=== PATIENT | male | born 1975 | race Caucasian/White ===

== ENCOUNTER 2022-06-13 11:27 | Inpatient (IN) | payer BC ==
[~2022-06-13] VITALS: Ht 170.2 cm; Wt 191.0 kg
[2022-06-13] VITALS (7 sets, daily range): BP systolic 114–159; BP diastolic 61–82
[2022-06-13] MEDS ORDERED: POLYETHYLENE GLYCOL 3350 17 GM PACK PO PRN (14:45)
[2022-06-13] MEDS ORDERED: SODIUM CHLORIDE 0.9% 250ML 250 ML IV NR (15:00)
[2022-06-13] MEDS ORDERED: FUROSEMIDE INJ 10 MG/ML 2 ML VIAL IV PRN (15:00)
[2022-06-13] MEDS ORDERED: FAMOTIDINE 20 MG TAB PO SCH (16:30)
[2022-06-13 17:58] LABS: BASOPHILS % 0.2 % (0.0-1.0); EOSINOPHILS % 0.2 % (0.0-6.0); HEMATOCRIT 22.3 % (38.2-49.6); LYMPHOCYTES # (AUTO) 0.7 (1.0-3.2); LYMPHOCYTES % 6.3 % (18.0-39.1); MEAN CORPUSCULAR HEMOGLOBIN 18.9 pg (28-32); MEAN CORPUSCULAR HGB CONC 25.1 g/dL (31-35); MEAN CORPUSCULAR VOLUME 75.1 fL (81-99); MONOCYTES # (AUTO) 0.2 (0.2-0.8); NEUTROPHILS # (AUTO) 9.5 (2.1-6.9); NEUTROPHILS % 90.7 % (38.7-80.0); PLATELET COUNT 331 x10e3/uL (140-360); RED BLOOD COUNT 2.97 x10e6/uL (4.3-5.7); RED CELL DISTRIBUTION WIDTH 19.2 % (11.7-14.4)
[2022-06-13] MEDS: DOCUSATE SODIUM 100 MG CAP PO SCH (18:00)
[2022-06-13] MEDS: RIVAROXABAN 10 MG TABLET PO SCH (18:02)
[2022-06-13 18:03] LABS: HEMOGLOBIN 5.6 g/dL (14.0-18.0)
[2022-06-13] MEDS ORDERED: SODIUM CHLORIDE 0.9% 250ML 250 ML ONE (18:45)
[2022-06-13] MEDS ORDERED: TEMAZEPAM 7.5 MG CAP PO PRN (21:00)
[2022-06-14] VITALS (15 sets, daily range): BP systolic 129–160; BP diastolic 62–98
[2022-06-14 05:13] LABS: BASOPHILS % 0.2 % (0.0-1.0); HEMATOCRIT 22.9 % (38.2-49.6); HEMOGLOBIN 6.4 g/dL (14.0-18.0); LYMPHOCYTES # (AUTO) 1.3 (1.0-3.2); LYMPHOCYTES % 10.3 % (18.0-39.1); MEAN CORPUSCULAR HEMOGLOBIN 20.4 pg (28-32); MEAN CORPUSCULAR HGB CONC 27.9 g/dL (31-35); MEAN CORPUSCULAR VOLUME 72.9 fL (81-99); MONOCYTES # (AUTO) 0.6 (0.2-0.8); MONOCYTES % 4.5 % (4.4-11.3); NEUTROPHILS # (AUTO) 10.5 (2.1-6.9); NEUTROPHILS % 83.9 % (38.7-80.0); PLATELET COUNT 347 x10e3/uL (140-360); RED BLOOD COUNT 3.14 x10e6/uL (4.3-5.7); RED CELL DISTRIBUTION WIDTH 20.4 % (11.7-14.4)
[2022-06-14 05:33] LABS: ALBUMIN 2.3 g/dL (3.5-5.0); ALBUMIN/GLOBULIN RATIO 0.5 (0.8-2.0); ANION GAP 15.6 mmol/L (8-16); CALCIUM 8.6 mg/dL (8.4-10.2); CHOL/HDL RATIO 5.3 (3.9-4.7); CREATININE, SERUM 0.73 mg/dL (0.72-1.25); PHOSPHORUS 3.1 MG/DL (2.3-4.7); POTASSIUM 4.6 mmol/L (3.5-5.1)
[2022-06-14 05:53] LABS: THYROID STIMULATING HORMONE 0.461 uIU/mL (0.350-4.940)
[2022-06-14] MEDS ORDERED: SODIUM CHLORIDE 0.9% 250ML 250 ML IV ONE (06:45)
[2022-06-14 08:38] LABS: PLATELET ESTIMATE ADEQUATE; PLATELET MORPHOLOGY COMMENT NORMAL; RBC MORPHOLOGY COMMENT NORMAL
[2022-06-14] MEDS ORDERED: AZITHROMYCIN 250 MG TAB PO SCH (09:00)
[2022-06-14] MEDS: DOCUSATE SODIUM 100 MG CAP PO SCH ×2 (10:31→18:59)
[2022-06-14] MEDS ORDERED: SODIUM CHLORIDE 0.9% 250ML 250 ML ONE (12:38)
[2022-06-14 13:12] LABS: FERRITIN 76.68 ng/mL (21.81-274.66)
[2022-06-14] MEDS: RIVAROXABAN 10 MG TABLET PO SCH (18:58)
[2022-06-14] MEDS: HYDRALAZINE HCL 20 MG/ML VIAL IV PRN (19:42)
[2022-06-14 20:52] LABS: HEMATOCRIT 28.3 % (38.2-49.6); HEMOGLOBIN 7.8 g/dL (14.0-18.0); MEAN CORPUSCULAR HEMOGLOBIN 21.4 pg (28-32); MEAN CORPUSCULAR HGB CONC 27.6 g/dL (31-35); MEAN CORPUSCULAR VOLUME 77.7 fL (81-99); PLATELET COUNT 367 x10e3/uL (140-360); RED BLOOD COUNT 3.64 x10e6/uL (4.3-5.7); RED CELL DISTRIBUTION WIDTH 20.6 % (11.7-14.4)
[2022-06-14 21:54] LABS: LYMPHOCYTES % (MANUAL) 11 % (19-48); MONOCYTES % (MANUAL) 7 % (3.4-9.0); NEUTROPHILS % (MANUAL) 82 % (40-74)
[2022-06-14 22:04] LABS: ANISOCYTOSIS MODERATE; ELLIPTOCYTE, RBC SLIGHT; HYPOCHROMASIA SLIGHT; PLATELET ESTIMATE ADEQUATE; PLATELET MORPHOLOGY COMMENT NORMAL; RBC MORPHOLOGY COMMENT ABNORMAL
[2022-06-15] VITALS (11 sets, daily range): BP systolic 131–164; BP diastolic 62–96
[2022-06-15 04:47] LABS: BASOPHILS % 0.2 % (0.0-1.0); EOSINOPHILS # (AUTO) 0.1 (0.0-0.4); EOSINOPHILS % 0.9 % (0.0-6.0); LYMPHOCYTES # (AUTO) 1.8 (1.0-3.2); LYMPHOCYTES % 14.5 % (18.0-39.1); MEAN CORPUSCULAR HEMOGLOBIN 21.4 pg (28-32); MEAN CORPUSCULAR HGB CONC 27.6 g/dL (31-35); MEAN CORPUSCULAR VOLUME 77.7 fL (81-99); MONOCYTES # (AUTO) 0.9 (0.2-0.8); NEUTROPHILS # (AUTO) 9.7 (2.1-6.9); NEUTROPHILS % 76.4 % (38.7-80.0); PLATELET COUNT 353 x10e3/uL (140-360); RED BLOOD COUNT 3.73 x10e6/uL (4.3-5.7); RED CELL DISTRIBUTION WIDTH 21.1 % (11.7-14.4)
[2022-06-15 05:06] LABS: POTASSIUM 4.5 mmol/L (3.5-5.1)
[2022-06-15 05:07] LABS: ALBUMIN 2.3 g/dL (3.5-5.0); ALBUMIN/GLOBULIN RATIO 0.5 (0.8-2.0); ANION GAP 16.5 mmol/L (8-16); CALCIUM 8.9 mg/dL (8.4-10.2); CREATININE, SERUM 0.82 mg/dL (0.72-1.25)
[2022-06-15] MEDS: HYDRALAZINE HCL 20 MG/ML VIAL IV PRN ×2 (06:13→22:43)
[2022-06-15] MEDS ORDERED: TEMAZEPAM 15 MG CAP PO PRN (09:15)
[2022-06-15] MEDS: DOCUSATE SODIUM 100 MG CAP PO SCH ×2 (10:30→17:27)
[2022-06-15] MEDS: FOLIC ACID/CYANOCOB/PYRIDOXINE TAB PO SCH (10:30)
[2022-06-15] MEDS: HEPARIN 25,000 UNIT 1,500 UNIT in DEXTROSE 5% 250ML 250 ML IV SCH ×2 (13:30→21:29)
[2022-06-15] MEDS ORDERED: HEPARIN SOD (PORCINE) 5,000 UNIT/ML VIAL IV ONE (13:30)
[2022-06-15] MEDS ORDERED: SODIUM FERRIC GLUCONATE COMPLX 125 MG in SODIUM CHLORIDE 0.9% 100 ML IV SCH (14:00)
[2022-06-15] MEDS: IRON SUCROSE 100 MG in SODIUM CHLORIDE 0.9% 100 ML IV SCH (16:37)
[2022-06-15] MEDS: ACETAMINOPHEN 325 MG TAB PO PRN (21:18)
[2022-06-16] VITALS (15 sets, daily range): BP systolic 137–178; BP diastolic 68–93
[2022-06-16] MEDS: HYDRALAZINE HCL 20 MG/ML VIAL IV PRN ×2 (03:15→08:38)
[2022-06-16] MEDS: HEPARIN 25,000 UNIT 1,500 UNIT in DEXTROSE 5% 250ML 250 ML IV SCH ×2 (04:37→11:58)
[2022-06-16] MEDS: FOLIC ACID/CYANOCOB/PYRIDOXINE TAB PO SCH (08:37)
[2022-06-16] MEDS: DOCUSATE SODIUM 100 MG CAP PO SCH ×2 (08:37→16:40)
[2022-06-16] MEDS: IRON SUCROSE 100 MG in SODIUM CHLORIDE 0.9% 100 ML IV SCH (09:56)
[2022-06-16] MEDS: NYSTATIN 15 GM POWDER UD BTL TOP SCH (09:56)
[2022-06-16 09:58] LABS: BASOPHILS % 0.4 % (0.0-1.0); EOSINOPHILS # (AUTO) 0.3 (0.0-0.4); EOSINOPHILS % 2.4 % (0.0-6.0); HEMATOCRIT 29.7 % (38.2-49.6); LYMPHOCYTES # (AUTO) 1.9 (1.0-3.2); LYMPHOCYTES % 18.7 % (18.0-39.1); MEAN CORPUSCULAR HEMOGLOBIN 21.4 pg (28-32); MEAN CORPUSCULAR HGB CONC 26.9 g/dL (31-35); MEAN CORPUSCULAR VOLUME 79.4 fL (81-99); MONOCYTES # (AUTO) 0.8 (0.2-0.8); MONOCYTES % 7.9 % (4.4-11.3); NEUTROPHILS # (AUTO) 7.2 (2.1-6.9); NEUTROPHILS % 70.1 % (38.7-80.0); PLATELET COUNT 336 x10e3/uL (140-360); RED BLOOD COUNT 3.74 x10e6/uL (4.3-5.7); RED CELL DISTRIBUTION WIDTH 22.8 % (11.7-14.4)
[2022-06-16 12:41] LABS: ANISOCYTOSIS MODERATE; HYPOCHROMASIA MODERATE; MICROCYTOSIS MODERATE; PLATELET ESTIMATE ADEQUATE; PLATELET MORPHOLOGY COMMENT NORMAL; RBC MORPHOLOGY COMMENT ABNORMAL
[2022-06-16 12:43] LABS: OVALOCYTES FEW; POLYCHROMASIA FEW
[2022-06-16] MEDS: ACETAMINOPHEN 325 MG TAB PO PRN ×2 (13:45→21:51)
[2022-06-17] VITALS (13 sets, daily range): BP systolic 91–157; BP diastolic 55–97
[2022-06-17] MEDS: HEPARIN 25,000 UNIT 1,500 UNIT in DEXTROSE 5% 250ML 250 ML IV SCH (01:49)
[2022-06-17 07:48] LABS: BASOPHILS % 0.3 % (0.0-1.0); EOSINOPHILS # (AUTO) 0.2 (0.0-0.4); EOSINOPHILS % 1.8 % (0.0-6.0); HEMATOCRIT 30.9 % (38.2-49.6); HEMOGLOBIN 8.5 g/dL (14.0-18.0); LYMPHOCYTES # (AUTO) 2.1 (1.0-3.2); LYMPHOCYTES % 16.2 % (18.0-39.1); MEAN CORPUSCULAR HEMOGLOBIN 21.7 pg (28-32); MEAN CORPUSCULAR HGB CONC 27.5 g/dL (31-35); MONOCYTES # (AUTO) 0.9 (0.2-0.8); MONOCYTES % 7.2 % (4.4-11.3); NEUTROPHILS # (AUTO) 9.4 (2.1-6.9); NEUTROPHILS % 73.9 % (38.7-80.0); PLATELET COUNT 309 x10e3/uL (140-360); RED BLOOD COUNT 3.91 x10e6/uL (4.3-5.7); RED CELL DISTRIBUTION WIDTH 23.5 % (11.7-14.4)
[2022-06-17] MEDS: NYSTATIN 15 GM POWDER UD BTL TOP SCH (08:13)
[2022-06-17] MEDS: FOLIC ACID/CYANOCOB/PYRIDOXINE TAB PO SCH (08:13)
[2022-06-17] MEDS: DOCUSATE SODIUM 100 MG CAP PO SCH ×2 (08:13→16:03)
[2022-06-17 08:34] LABS: ALBUMIN 2.4 g/dL (3.5-5.0); ALBUMIN/GLOBULIN RATIO 0.5 (0.8-2.0); ANION GAP 14.3 mmol/L (8-16); CALCIUM 8.8 mg/dL (8.4-10.2); CREATININE, SERUM 0.8 mg/dL (0.72-1.25); POTASSIUM 4.3 mmol/L (3.5-5.1)
[2022-06-17] MEDS: IRON SUCROSE 100 MG in SODIUM CHLORIDE 0.9% 100 ML IV SCH (09:25)
[2022-06-17 11:02] LABS: LYMPHOCYTES % (MANUAL) 14 % (19-48); MONOCYTES % (MANUAL) 13 % (3.4-9.0); NEUTROPHILS % (MANUAL) 73 % (40-74); NUCLEATED RED BLOOD CELLS 1; PLATELET ESTIMATE ADEQUATE; PLATELET MORPHOLOGY COMMENT NORMAL; RBC MORPHOLOGY COMMENT NORMAL
[2022-06-17] MEDS ORDERED: FENTANYL CITRATE/PF 100MCG/2 ML INJ ONE (13:08)
[2022-06-17] MEDS ORDERED: PROPOFOL IV EMULSION 10 MG/ML 20 ML VIAL ONE (13:57)
[2022-06-17] MEDS ORDERED: LIDOCAINE HCL 2% LOCAL INJ 5 ML SDV VIAL INJ ONE (13:57)
[2022-06-17] MEDS: ACETAMINOPHEN 325 MG TAB PO PRN (18:53)
[2022-06-18] MEDS: HEPARIN 25,000 UNIT 1,500 UNIT in DEXTROSE 5% 250ML 250 ML IV SCH ×2 (04:18→20:36)
[2022-06-18] MEDS ORDERED: HEPARIN 25,000 UNIT DRIP IV ONE (04:25)
[2022-06-18 04:31] LABS: BASOPHILS % 0.2 % (0.0-1.0); EOSINOPHILS # (AUTO) 0.3 (0.0-0.4); EOSINOPHILS % 2.1 % (0.0-6.0); HEMATOCRIT 28.4 % (38.2-49.6); HEMOGLOBIN 7.7 g/dL (14.0-18.0); LYMPHOCYTES # (AUTO) 2.1 (1.0-3.2); LYMPHOCYTES % 17.2 % (18.0-39.1); MEAN CORPUSCULAR HEMOGLOBIN 21.7 pg (28-32); MEAN CORPUSCULAR HGB CONC 27.1 g/dL (31-35); MONOCYTES % 8.5 % (4.4-11.3); NEUTROPHILS # (AUTO) 8.7 (2.1-6.9); NEUTROPHILS % 71.4 % (38.7-80.0); PLATELET COUNT 271 x10e3/uL (140-360); RED BLOOD COUNT 3.55 x10e6/uL (4.3-5.7); RED CELL DISTRIBUTION WIDTH 23.8 % (11.7-14.4)
[2022-06-18 04:45] LABS: ANION GAP 14.2 mmol/L (8-16); CALCIUM 8.7 mg/dL (8.4-10.2); CREATININE, SERUM 0.76 mg/dL (0.72-1.25); POTASSIUM 4.2 mmol/L (3.5-5.1)
[2022-06-18] MEDS: ACETAMINOPHEN 325 MG TAB PO PRN ×2 (06:23→18:39)
[2022-06-18] MEDS: DOCUSATE SODIUM 100 MG CAP PO SCH ×2 (08:26→16:32)
[2022-06-18] MEDS: FOLIC ACID/CYANOCOB/PYRIDOXINE TAB PO SCH (08:26)
[2022-06-18] MEDS: NYSTATIN 15 GM POWDER UD BTL TOP SCH (08:26)
[2022-06-18] MEDS: IRON SUCROSE 100 MG in SODIUM CHLORIDE 0.9% 100 ML IV SCH (08:38)
[2022-06-18 09:00] VITALS: BP 133/65
[2022-06-18 11:37] VITALS: BP 129/67
[2022-06-18] MEDS ORDERED: MIDAZOLAM HCL 2 MG/2 ML VIAL ONE (14:00)
[2022-06-18] MEDS ORDERED: SODIUM CHLORIDE 0.9% 1000ML 1,000 ML ONE (14:01)
[2022-06-18] MEDS ORDERED: FENTANYL CITRATE/PF 100MCG/2 ML INJ ONE (14:01)
[2022-06-18] MEDS ORDERED: HEPARIN SOD/SOD CHLORIDE 1,000 ML ONE (14:02)
[2022-06-18] MEDS ORDERED: LIDOCAINE HCL 2% LOCAL INJ 5 ML SDV VIAL INJ ONE (14:06)
[2022-06-18] MEDS ORDERED: IOPAMIDOL 300MG/ML 100 ML INFUS..BTL IV ONE (14:10)
[2022-06-18 15:25] VITALS: BP 134/64
[2022-06-18 19:00] VITALS: BP 137/65
[2022-06-18 20:18] VITALS: BP 137/65
[2022-06-18 23:00] VITALS: BP 142/79
[2022-06-19] MEDS: HYDROCODONE/APAP 5MG-325MG TAB PO PRN ×3 (00:17→19:19)
[2022-06-19 03:00] VITALS: BP 139/79
[2022-06-19 06:50] LABS: BASOPHILS % 0.3 % (0.0-1.0); EOSINOPHILS # (AUTO) 0.4 (0.0-0.4); EOSINOPHILS % 3.6 % (0.0-6.0); HEMATOCRIT 28.4 % (38.2-49.6); HEMOGLOBIN 7.6 g/dL (14.0-18.0); LYMPHOCYTES # (AUTO) 2.1 (1.0-3.2); LYMPHOCYTES % 17.4 % (18.0-39.1); MEAN CORPUSCULAR HEMOGLOBIN 21.7 pg (28-32); MEAN CORPUSCULAR HGB CONC 26.8 g/dL (31-35); MEAN CORPUSCULAR VOLUME 80.9 fL (81-99); MONOCYTES # (AUTO) 1.1 (0.2-0.8); MONOCYTES % 9.4 % (4.4-11.3); NEUTROPHILS # (AUTO) 8.3 (2.1-6.9); NEUTROPHILS % 68.6 % (38.7-80.0); PLATELET COUNT 255 x10e3/uL (140-360); RED BLOOD COUNT 3.51 x10e6/uL (4.3-5.7); RED CELL DISTRIBUTION WIDTH 24.1 % (11.7-14.4)
[2022-06-19 07:00] VITALS: BP 132/73
[2022-06-19] MEDS: HEPARIN 25,000 UNIT 1,500 UNIT in DEXTROSE 5% 250ML 250 ML IV SCH ×2 (07:10→17:10)
[2022-06-19] MEDS ORDERED: HEPARIN 25,000 UNIT DRIP IV ONE (07:19)
[2022-06-19 09:00] VITALS: BP 132/73
[2022-06-19] MEDS: NYSTATIN 15 GM POWDER UD BTL TOP SCH (09:00)
[2022-06-19] MEDS: DOCUSATE SODIUM 100 MG CAP PO SCH ×2 (09:00→17:08)
[2022-06-19] MEDS: IRON SUCROSE 100 MG in SODIUM CHLORIDE 0.9% 100 ML IV SCH (09:29)
[2022-06-19] MEDS: FOLIC ACID/CYANOCOB/PYRIDOXINE TAB PO SCH (11:23)
[2022-06-19 12:00] VITALS: BP 134/75
[2022-06-19 20:55] VITALS: BP 125/56
[2022-06-19 21:00] VITALS: BP 125/56
[2022-06-20] VITALS (8 sets, daily range): BP systolic 121–159; BP diastolic 55–88
[2022-06-20] MEDS ORDERED: HEPARIN 25,000 UNIT DRIP IV ONE (05:03)
[2022-06-20 08:13] LABS: BASOPHILS % 0.2 % (0.0-1.0); EOSINOPHILS # (AUTO) 0.4 (0.0-0.4); EOSINOPHILS % 3.7 % (0.0-6.0); HEMOGLOBIN 8.2 g/dL (14.0-18.0); LYMPHOCYTES # (AUTO) 1.9 (1.0-3.2); LYMPHOCYTES % 18.1 % (18.0-39.1); MEAN CORPUSCULAR HEMOGLOBIN 21.6 pg (28-32); MEAN CORPUSCULAR HGB CONC 26.5 g/dL (31-35); MEAN CORPUSCULAR VOLUME 81.6 fL (81-99); MONOCYTES # (AUTO) 0.8 (0.2-0.8); MONOCYTES % 7.8 % (4.4-11.3); NEUTROPHILS # (AUTO) 7.4 (2.1-6.9); NEUTROPHILS % 69.6 % (38.7-80.0); PLATELET COUNT 268 x10e3/uL (140-360); RED CELL DISTRIBUTION WIDTH 23.9 % (11.7-14.4)
[2022-06-20 08:33] LABS: ALBUMIN 2.5 g/dL (3.5-5.0); ALBUMIN/GLOBULIN RATIO 0.5 (0.8-2.0); ANION GAP 16.2 mmol/L (8-16); CALCIUM 9.1 mg/dL (8.4-10.2); CREATININE, SERUM 0.76 mg/dL (0.72-1.25); POTASSIUM 4.2 mmol/L (3.5-5.1)
[2022-06-20] MEDS: DOCUSATE SODIUM 100 MG CAP PO SCH ×2 (09:28→17:00)
[2022-06-20] MEDS: NYSTATIN 15 GM POWDER UD BTL TOP SCH (09:28)
[2022-06-20] MEDS: FOLIC ACID/CYANOCOB/PYRIDOXINE TAB PO SCH (09:28)
[2022-06-20] MEDS ORDERED: IOPAMIDOL 370 MG/ML 100 ML INFUS..BTL INJ ONE (11:01)
[2022-06-20] MEDS ORDERED: PEG (High)/E-LYTE SOLN 4,000 ML BTL PO ONE (14:00)
[2022-06-20] MEDS: HYDROCODONE/APAP 5MG-325MG TAB PO PRN (15:28)
[2022-06-20] MEDS: HEPARIN 25,000 UNIT 1,500 UNIT in DEXTROSE 5% 250ML 250 ML IV SCH (15:34)
[2022-06-21] VITALS (7 sets, daily range): BP systolic 135–156; BP diastolic 82–90
[2022-06-21] MEDS ORDERED: BISACODYL 5 MG TAB EC PO ONE ×4 (00:15→01:50)
[2022-06-21] MEDS: HYDROCODONE/APAP 5MG-325MG TAB PO PRN ×2 (00:49→21:55)
[2022-06-21] MEDS ORDERED: HEPARIN 25,000 UNIT DRIP IV ONE (02:42)
[2022-06-21 05:35] LABS: BASOPHILS # (AUTO) 0.1 (0.0-0.1); BASOPHILS % 0.4 % (0.0-1.0); EOSINOPHILS # (AUTO) 0.3 (0.0-0.4); EOSINOPHILS % 2.7 % (0.0-6.0); HEMATOCRIT 28.6 % (38.2-49.6); HEMOGLOBIN 8.2 g/dL (14.0-18.0); LYMPHOCYTES # (AUTO) 2.5 (1.0-3.2); LYMPHOCYTES % 19.7 % (18.0-39.1); MEAN CORPUSCULAR HEMOGLOBIN 21.8 pg (28-32); MEAN CORPUSCULAR HGB CONC 28.7 g/dL (31-35); MEAN CORPUSCULAR VOLUME 75.9 fL (81-99); MONOCYTES # (AUTO) 1.2 (0.2-0.8); MONOCYTES % 9.8 % (4.4-11.3); NEUTROPHILS # (AUTO) 8.3 (2.1-6.9); NEUTROPHILS % 66.8 % (38.7-80.0); PLATELET COUNT 279 x10e3/uL (140-360); RED BLOOD COUNT 3.77 x10e6/uL (4.3-5.7); RED CELL DISTRIBUTION WIDTH 24.4 % (11.7-14.4)
[2022-06-21 07:47] LABS: BAND NEUTROPHILS % (MANUAL) 1 %; EOSINOPHILS % (MANUAL) 3 % (0-7); LYMPHOCYTES % (MANUAL) 14 % (19-48); MONOCYTES % (MANUAL) 6 % (3.4-9.0); NEUTROPHILS % (MANUAL) 71 % (40-74); PLATELET ESTIMATE ADEQUATE; PLATELET MORPHOLOGY COMMENT NORMAL; RBC MORPHOLOGY COMMENT NORMAL
[2022-06-21 07:48] LABS: OVALOCYTES FEW
[2022-06-21 07:55] LABS: ANION GAP 15.9 mmol/L (8-16); CALCIUM 9.3 mg/dL (8.4-10.2); CREATININE, SERUM 0.76 mg/dL (0.72-1.25); POTASSIUM 3.9 mmol/L (3.5-5.1)
[2022-06-21] MEDS: NYSTATIN 15 GM POWDER UD BTL TOP SCH (09:00)
[2022-06-21] MEDS: FOLIC ACID/CYANOCOB/PYRIDOXINE TAB PO SCH (09:00)
[2022-06-21] MEDS: DOCUSATE SODIUM 100 MG CAP PO SCH ×2 (09:00→17:09)
[2022-06-21] MEDS ORDERED: PROPOFOL IV EMULSION 10 MG/ML 20 ML VIAL ONE (13:30)
[2022-06-21] MEDS ORDERED: METOCLOPRAMIDE HCL 10 MG/2ML VIAL ONE (13:30)
[2022-06-21] MEDS ORDERED: PROPOFOL IV EMULSION 50 ML IV ONE (15:21)
[2022-06-21] MEDS ORDERED: FENTANYL CITRATE/PF 100MCG/2 ML INJ ONE (16:10)
[2022-06-21] MEDS: HYDROMORPHONE 1MG/1ML INJ IV PRN (23:12)
[2022-06-22] VITALS (11 sets, daily range): BP systolic 114–150; BP diastolic 66–91
[2022-06-22] MEDS: HYDROMORPHONE 1MG/1ML INJ IV PRN ×6 (04:05→23:31)
[2022-06-22 07:01] LABS: BASOPHILS # (AUTO) 0.1 (0.0-0.1); BASOPHILS % 0.3 % (0.0-1.0); HEMATOCRIT 32.2 % (38.2-49.6); HEMOGLOBIN 9.2 g/dL (14.0-18.0); LYMPHOCYTES # (AUTO) 1.7 (1.0-3.2); LYMPHOCYTES % 8.1 % (18.0-39.1); MEAN CORPUSCULAR HEMOGLOBIN 21.9 pg (28-32); MEAN CORPUSCULAR HGB CONC 28.6 g/dL (31-35); MEAN CORPUSCULAR VOLUME 76.7 fL (81-99); MONOCYTES # (AUTO) 1.3 (0.2-0.8); MONOCYTES % 6.3 % (4.4-11.3); NEUTROPHILS # (AUTO) 17.6 (2.1-6.9); NEUTROPHILS % 84.6 % (38.7-80.0); PLATELET COUNT 285 x10e3/uL (140-360); RED CELL DISTRIBUTION WIDTH 24.7 % (11.7-14.4)
[2022-06-22 07:13] LABS: ALBUMIN 3.3 g/dL (3.5-5.0); ALBUMIN/GLOBULIN RATIO 0.8 (0.8-2.0); ANION GAP 17.6 mmol/L (8-16); CALCIUM 9.1 mg/dL (8.4-10.2); CREATININE, SERUM 0.98 mg/dL (0.72-1.25); POTASSIUM 4.6 mmol/L (3.5-5.1)
[2022-06-22] MEDS: FOLIC ACID/CYANOCOB/PYRIDOXINE TAB PO SCH (07:37)
[2022-06-22] MEDS: DOCUSATE SODIUM 100 MG CAP PO SCH ×2 (07:37→17:00)
[2022-06-22 07:53] LABS: BAND NEUTROPHILS % (MANUAL) 3 %; LYMPHOCYTES % (MANUAL) 17 % (19-48); MONOCYTES % (MANUAL) 4 % (3.4-9.0); NEUTROPHILS % (MANUAL) 76 % (40-74)
[2022-06-22 07:55] LABS: ANISOCYTOSIS SLIGHT; NUCLEATED RED BLOOD CELLS 0
[2022-06-22 07:56] LABS: PLATELET ESTIMATE ADEQUATE; PLATELET MORPHOLOGY COMMENT NORMAL
[2022-06-22] MEDS: NYSTATIN 15 GM POWDER UD BTL TOP SCH (10:11)
[2022-06-22] MEDS: METRONIDAZOLE 500MG/NS 100ML 100 ML IV SCH ×2 (10:11→18:00)
[2022-06-22 14:08] LABS: INR 1.21; PROTHROMBIN TIME 16.4 seconds (11.9-14.5)
[2022-06-23] VITALS (43 sets, daily range): BP systolic 103–153; BP diastolic 62–108
[2022-06-23] MEDS: METRONIDAZOLE 500MG/NS 100ML 100 ML IV SCH ×2 (02:16→09:40)
[2022-06-23] MEDS: HYDROMORPHONE 1MG/1ML INJ IV PRN ×5 (05:26→22:05)
[2022-06-23 05:39] LABS: BASOPHILS # (AUTO) 0.1 (0.0-0.1); BASOPHILS % 0.4 % (0.0-1.0); EOSINOPHILS # (AUTO) 0.1 (0.0-0.4); EOSINOPHILS % 0.2 % (0.0-6.0); HEMATOCRIT 31.5 % (38.2-49.6); LYMPHOCYTES # (AUTO) 2.4 (1.0-3.2); LYMPHOCYTES % 8.8 % (18.0-39.1); MEAN CORPUSCULAR HEMOGLOBIN 21.9 pg (28-32); MEAN CORPUSCULAR HGB CONC 28.6 g/dL (31-35); MEAN CORPUSCULAR VOLUME 76.6 fL (81-99); MONOCYTES # (AUTO) 1.5 (0.2-0.8); MONOCYTES % 5.6 % (4.4-11.3); NEUTROPHILS # (AUTO) 22.3 (2.1-6.9); NEUTROPHILS % 83.7 % (38.7-80.0); PLATELET COUNT 220 x10e3/uL (140-360); RED BLOOD COUNT 4.11 x10e6/uL (4.3-5.7)
[2022-06-23 06:09] LABS: ANION GAP 15.8 mmol/L (8-16); CALCIUM 9.1 mg/dL (8.4-10.2); CREATININE, SERUM 1.25 mg/dL (0.72-1.25); MAGNESIUM 1.8 MG/DL (1.3-2.1); PHOSPHORUS 4.1 MG/DL (2.3-4.7); POTASSIUM 4.8 mmol/L (3.5-5.1)
[2022-06-23] MEDS: FOLIC ACID/CYANOCOB/PYRIDOXINE TAB PO SCH (08:16)
[2022-06-23] MEDS: DOCUSATE SODIUM 100 MG CAP PO SCH ×2 (08:16→17:00)
[2022-06-23 08:41] LABS: LYMPHOCYTES % (MANUAL) 6 % (19-48); MONOCYTES % (MANUAL) 3 % (3.4-9.0); NEUTROPHILS % (MANUAL) 90 % (40-74)
[2022-06-23 08:42] LABS: PLATELET ESTIMATE ADEQUATE; PLATELET MORPHOLOGY COMMENT NORMAL; RBC MORPHOLOGY COMMENT NORMAL
[2022-06-23] MEDS ORDERED: SODIUM CHLORIDE 0.9% 250ML 250 ML ONE ×2 (08:59→10:28)
[2022-06-23] MEDS ORDERED: MIDAZOLAM HCL 2 MG/2 ML VIAL ONE (10:28)
[2022-06-23] MEDS ORDERED: FENTANYL CITRATE/PF 100MCG/2 ML INJ ONE (10:28)
[2022-06-23] MEDS ORDERED: AMIODARONE HCL 900 MG in DEXTROSE 5 % 500ML BOTTLE 482 ML IV SCH (13:45)
[2022-06-23] MEDS ORDERED: AMIODARONE HCL 150 MG/100 ML BAG IV ONE (13:45)
[2022-06-23] MEDS: PIPERACILLIN/TAZOBACTAM 4.5 GM in SODIUM CHLORIDE 0.9% 100 ML IV SCH ×2 (14:41→22:05)
[2022-06-23 15:06] LABS: BODY FLUID APPEARANCE TURBID
[2022-06-23] MEDS ORDERED: SODIUM CHLORIDE 0.9% 1000ML 1,000 ML IV ONE (17:00)
[2022-06-23] MEDS ORDERED: ACETAMINOPHEN 1000 MG/100 ML IV PRN (17:45)
[2022-06-23] MEDS ORDERED: ACETAMINOPHEN 1000 MG/100 ML IV SCH (18:00)
[2022-06-23] MEDS: HEPARIN 25,000 UNIT 1,500 UNIT in DEXTROSE 5% 250ML 250 ML IV SCH (18:57)
[2022-06-24] VITALS (30 sets, daily range): BP systolic 128–156; BP diastolic 73–119
[2022-06-24] MEDS: HYDROMORPHONE 1MG/1ML INJ IV PRN ×7 (02:27→22:14)
[2022-06-24] MEDS: PIPERACILLIN/TAZOBACTAM 4.5 GM in SODIUM CHLORIDE 0.9% 100 ML IV SCH ×3 (05:04→21:29)
[2022-06-24] MEDS: HEPARIN 25,000 UNIT 1,500 UNIT in DEXTROSE 5% 250ML 250 ML IV SCH ×2 (06:14→08:49)
[2022-06-24 08:12] LABS: BASOPHILS # (AUTO) 0.1 (0.0-0.1); BASOPHILS % 0.2 % (0.0-1.0); EOSINOPHILS # (AUTO) 0.1 (0.0-0.4); EOSINOPHILS % 0.5 % (0.0-6.0); HEMATOCRIT 31.6 % (38.2-49.6); HEMOGLOBIN 8.4 g/dL (14.0-18.0); LYMPHOCYTES # (AUTO) 1.7 (1.0-3.2); LYMPHOCYTES % 5.9 % (18.0-39.1); MEAN CORPUSCULAR HEMOGLOBIN 21.8 pg (28-32); MEAN CORPUSCULAR HGB CONC 26.6 g/dL (31-35); MEAN CORPUSCULAR VOLUME 81.9 fL (81-99); MONOCYTES # (AUTO) 1.5 (0.2-0.8); MONOCYTES % 5.5 % (4.4-11.3); NEUTROPHILS # (AUTO) 24.3 (2.1-6.9); PLATELET COUNT 243 x10e3/uL (140-360); RED BLOOD COUNT 3.86 x10e6/uL (4.3-5.7); RED CELL DISTRIBUTION WIDTH 23.6 % (11.7-14.4)
[2022-06-24 08:32] LABS: ALBUMIN/GLOBULIN RATIO 0.8 (0.8-2.0); ANION GAP 17.5 mmol/L (8-16); CALCIUM 9.1 mg/dL (8.4-10.2); CREATININE, SERUM 1.28 mg/dL (0.72-1.25); POTASSIUM 4.5 mmol/L (3.5-5.1)
[2022-06-24] MEDS: FOLIC ACID/CYANOCOB/PYRIDOXINE TAB PO SCH (08:51)
[2022-06-24 08:55] LABS: LYMPHOCYTES % (MANUAL) 7 % (19-48); MONOCYTES % (MANUAL) 4 % (3.4-9.0); NEUTROPHILS % (MANUAL) 89 % (40-74)
[2022-06-24 08:57] LABS: POLYCHROMASIA FEW
[2022-06-24 08:58] LABS: ANISOCYTOSIS MODERATE; HYPOCHROMASIA MODERATE; PLATELET ESTIMATE ADEQUATE; PLATELET MORPHOLOGY COMMENT NORMAL; RBC MORPHOLOGY COMMENT ABNORMAL
[2022-06-24] MEDS: DOCUSATE SODIUM 100 MG CAP PO SCH ×2 (09:00→16:13)
[2022-06-24] MEDS: ONDANSETRON HCL INJ 2MG/ML 2ML 2 MG/ML VIAL IV PRN ×2 (09:35→21:37)
[2022-06-24 14:04] LABS: BASOPHILS # (AUTO) 0.1 (0.0-0.1); BASOPHILS % 0.2 % (0.0-1.0); EOSINOPHILS # (AUTO) 0.1 (0.0-0.4); EOSINOPHILS % 0.5 % (0.0-6.0); HEMATOCRIT 32.3 % (38.2-49.6); HEMOGLOBIN 8.6 g/dL (14.0-18.0); LYMPHOCYTES # (AUTO) 1.4 (1.0-3.2); MEAN CORPUSCULAR HEMOGLOBIN 21.8 pg (28-32); MEAN CORPUSCULAR HGB CONC 26.6 g/dL (31-35); MEAN CORPUSCULAR VOLUME 81.8 fL (81-99); MONOCYTES # (AUTO) 1.4 (0.2-0.8); MONOCYTES % 5.2 % (4.4-11.3); NEUTROPHILS # (AUTO) 23.9 (2.1-6.9); NEUTROPHILS % 88.4 % (38.7-80.0); PLATELET COUNT 264 x10e3/uL (140-360); RED BLOOD COUNT 3.95 x10e6/uL (4.3-5.7); RED CELL DISTRIBUTION WIDTH 23.5 % (11.7-14.4)
[2022-06-24 16:24] LABS: EOSINOPHILS % (MANUAL) 1 % (0-7); LYMPHOCYTES % (MANUAL) 13 % (19-48); MONOCYTES % (MANUAL) 4 % (3.4-9.0); NEUTROPHILS % (MANUAL) 79 % (40-74)
[2022-06-24 16:25] LABS: BAND NEUTROPHILS % (MANUAL) 3 %; PLATELET ESTIMATE ADEQUATE; PLATELET MORPHOLOGY COMMENT NORMAL
[2022-06-24 16:26] LABS: HYPOCHROMASIA MODERATE; POLYCHROMASIA FEW
[2022-06-24 16:27] LABS: ANISOCYTOSIS MODERATE
[2022-06-24] MEDS ORDERED: HEPARIN 25,000 UNIT DRIP IV ONE (20:38)
[2022-06-25] VITALS (21 sets, daily range): BP systolic 127–168; BP diastolic 80–97
[2022-06-25] MEDS: HYDROMORPHONE 1MG/1ML INJ IV PRN ×8 (01:19→23:10)
[2022-06-25] MEDS: PIPERACILLIN/TAZOBACTAM 4.5 GM in SODIUM CHLORIDE 0.9% 100 ML IV SCH ×3 (06:04→22:24)
[2022-06-25 06:46] LABS: BASOPHILS % 0.1 % (0.0-1.0); EOSINOPHILS # (AUTO) 0.3 (0.0-0.4); EOSINOPHILS % 1.5 % (0.0-6.0); HEMATOCRIT 27.6 % (38.2-49.6); HEMOGLOBIN 7.3 g/dL (14.0-18.0); LYMPHOCYTES # (AUTO) 1.3 (1.0-3.2); MEAN CORPUSCULAR HEMOGLOBIN 22.1 pg (28-32); MEAN CORPUSCULAR HGB CONC 26.4 g/dL (31-35); MEAN CORPUSCULAR VOLUME 83.4 fL (81-99); MONOCYTES % 5.5 % (4.4-11.3); NEUTROPHILS # (AUTO) 15.8 (2.1-6.9); NEUTROPHILS % 85.3 % (38.7-80.0); PLATELET COUNT 270 x10e3/uL (140-360); RED BLOOD COUNT 3.31 x10e6/uL (4.3-5.7); RED CELL DISTRIBUTION WIDTH 23.4 % (11.7-14.4)
[2022-06-25 07:36] LABS: ALBUMIN 2.5 g/dL (3.5-5.0); ALBUMIN/GLOBULIN RATIO 0.7 (0.8-2.0); ANION GAP 27.4 mmol/L (8-16); CALCIUM 7.5 mg/dL (8.4-10.2); CREATININE, SERUM 1.09 mg/dL (0.72-1.25); POTASSIUM 3.4 mmol/L (3.5-5.1)
[2022-06-25] MEDS: DOCUSATE SODIUM 100 MG CAP PO SCH ×2 (08:52→16:59)
[2022-06-25] MEDS: FOLIC ACID/CYANOCOB/PYRIDOXINE TAB PO SCH (08:52)
[2022-06-25] MEDS ORDERED: EPOETIN ALFA-EPBX 10,000 UNIT/ML VIAL SC ONE (09:45)
[2022-06-25] MEDS: SODIUM FERRIC GLUCONATE COMPLX 125 MG in SODIUM CHLORIDE 0.9% 100 ML IV SCH (10:39)
[2022-06-25] MEDS: RIVAROXABAN 10 MG TABLET PO SCH (16:59)
[2022-06-25] MEDS: ONDANSETRON HCL INJ 2MG/ML 2ML 2 MG/ML VIAL IV PRN (19:44)
[2022-06-26] VITALS (17 sets, daily range): BP systolic 106–167; BP diastolic 66–90
[2022-06-26] MEDS: ONDANSETRON HCL INJ 2MG/ML 2ML 2 MG/ML VIAL IV PRN ×3 (02:11→21:59)
[2022-06-26] MEDS: HYDROMORPHONE 1MG/1ML INJ IV PRN ×6 (02:16→22:02)
[2022-06-26 06:16] LABS: ANION GAP 16.7 mmol/L (8-16); CALCIUM 9.5 mg/dL (8.4-10.2); CREATININE, SERUM 1.31 mg/dL (0.72-1.25); POTASSIUM 4.7 mmol/L (3.5-5.1)
[2022-06-26] MEDS: PIPERACILLIN/TAZOBACTAM 4.5 GM in SODIUM CHLORIDE 0.9% 100 ML IV SCH ×3 (06:29→21:59)
[2022-06-26] MEDS ORDERED: SODIUM CHLORIDE 0.9% 0 ML ONE (06:31)
[2022-06-26] MEDS: PANTOPRAZOLE SOD 40 MG TABEC PO SCH (08:50)
[2022-06-26] MEDS: FOLIC ACID/CYANOCOB/PYRIDOXINE TAB PO SCH (08:51)
[2022-06-26] MEDS: DOCUSATE SODIUM 100 MG CAP PO SCH ×2 (08:51→16:54)
[2022-06-26] MEDS: SODIUM FERRIC GLUCONATE COMPLX 125 MG in SODIUM CHLORIDE 0.9% 100 ML IV SCH (08:51)
[2022-06-26] MEDS ORDERED: SODIUM CHLORIDE 0.9% 1000ML 1,000 ML IV ONE (12:45)
[2022-06-26 14:17] LABS: BASOPHILS % 0.2 % (0.0-1.0); EOSINOPHILS % 0.2 % (0.0-6.0); HEMATOCRIT 34.2 % (38.2-49.6); HEMOGLOBIN 9.1 g/dL (14.0-18.0); LYMPHOCYTES # (AUTO) 1.2 (1.0-3.2); LYMPHOCYTES % 5.1 % (18.0-39.1); MEAN CORPUSCULAR HEMOGLOBIN 22.1 pg (28-32); MEAN CORPUSCULAR HGB CONC 26.6 g/dL (31-35); MONOCYTES # (AUTO) 1.2 (0.2-0.8); MONOCYTES % 5.2 % (4.4-11.3); NEUTROPHILS # (AUTO) 20.2 (2.1-6.9); NEUTROPHILS % 88.4 % (38.7-80.0); PLATELET COUNT 253 x10e3/uL (140-360); RED BLOOD COUNT 4.12 x10e6/uL (4.3-5.7); RED CELL DISTRIBUTION WIDTH 23.7 % (11.7-14.4)
[2022-06-26] MEDS: RIVAROXABAN 10 MG TABLET PO SCH (16:56)
[2022-06-26] MEDS ORDERED: TRAMADOL HCL 50 MG TAB PO PRN (20:00)
[2022-06-26] MEDS ORDERED: HYDROCODONE/APAP 7.5MG-325MG 1 EA TAB PO PRN (20:00)
[2022-06-27] VITALS (8 sets, daily range): BP systolic 124–150; BP diastolic 68–78
[2022-06-27] MEDS: ONDANSETRON HCL INJ 2MG/ML 2ML 2 MG/ML VIAL IV PRN ×4 (01:17→20:39)
[2022-06-27] MEDS: HYDROMORPHONE 1MG/1ML INJ IV PRN ×5 (01:21→20:39)
[2022-06-27] MEDS: PIPERACILLIN/TAZOBACTAM 4.5 GM in SODIUM CHLORIDE 0.9% 100 ML IV SCH ×3 (05:12→20:38)
[2022-06-27 06:24] LABS: BASOPHILS % 0.2 % (0.0-1.0); EOSINOPHILS # (AUTO) 0.2 (0.0-0.4); EOSINOPHILS % 0.7 % (0.0-6.0); HEMATOCRIT 31.9 % (38.2-49.6); HEMOGLOBIN 8.4 g/dL (14.0-18.0); LYMPHOCYTES # (AUTO) 1.4 (1.0-3.2); LYMPHOCYTES % 5.6 % (18.0-39.1); MEAN CORPUSCULAR HEMOGLOBIN 21.9 pg (28-32); MEAN CORPUSCULAR HGB CONC 26.3 g/dL (31-35); MEAN CORPUSCULAR VOLUME 83.1 fL (81-99); MONOCYTES # (AUTO) 1.4 (0.2-0.8); MONOCYTES % 5.7 % (4.4-11.3); NEUTROPHILS # (AUTO) 21.2 (2.1-6.9); PLATELET COUNT 262 x10e3/uL (140-360); RED BLOOD COUNT 3.84 x10e6/uL (4.3-5.7); RED CELL DISTRIBUTION WIDTH 23.8 % (11.7-14.4)
[2022-06-27 06:46] LABS: ALBUMIN 2.9 g/dL (3.5-5.0); ALBUMIN/GLOBULIN RATIO 0.7 (0.8-2.0); ANION GAP 17.5 mmol/L (8-16); CALCIUM 9.8 mg/dL (8.4-10.2); CREATININE, SERUM 1.42 mg/dL (0.72-1.25); POTASSIUM 4.5 mmol/L (3.5-5.1)
[2022-06-27] MEDS: PANTOPRAZOLE SOD 40 MG TABEC PO SCH (07:44)
[2022-06-27] MEDS: DOCUSATE SODIUM 100 MG CAP PO SCH ×2 (08:42→16:35)
[2022-06-27] MEDS: FOLIC ACID/CYANOCOB/PYRIDOXINE TAB PO SCH (08:42)
[2022-06-27] MEDS: HYDROCODONE/APAP 10MG-325MG TAB PO PRN (08:44)
[2022-06-27 08:55] LABS: ANISOCYTOSIS MODERATE; HYPOCHROMASIA SLIGHT; LYMPHOCYTES % (MANUAL) 1 % (19-48); MONOCYTES % (MANUAL) 3 % (3.4-9.0); NEUTROPHILS % (MANUAL) 96 % (40-74); PLATELET ESTIMATE ADEQUATE; PLATELET MORPHOLOGY COMMENT FEW LARGE; POLYCHROMASIA FEW
[2022-06-27 08:56] LABS: MICROCYTOSIS SLIGHT; RBC MORPHOLOGY COMMENT ABNORMAL
[2022-06-27] MEDS: SODIUM FERRIC GLUCONATE COMPLX 125 MG in SODIUM CHLORIDE 0.9% 100 ML IV SCH (10:00)
[2022-06-27] MEDS: RIVAROXABAN 10 MG TABLET PO SCH (16:35)
[2022-06-27] MEDS ORDERED: ALPRAZOLAM 0.5 MG TAB PO PRN (17:30)
[2022-06-27] MEDS ORDERED: MAGNESIUM HYDROXIDE 30 ML UDC PO ONE (23:15)
[2022-06-28] VITALS (8 sets, daily range): BP systolic 124–164; BP diastolic 60–87
[2022-06-28] MEDS: HYDROCODONE/APAP 10MG-325MG TAB PO PRN (00:15)
[2022-06-28] MEDS: HYDROMORPHONE 1MG/1ML INJ IV PRN ×4 (05:25→21:38)
[2022-06-28] MEDS: ONDANSETRON HCL INJ 2MG/ML 2ML 2 MG/ML VIAL IV PRN ×3 (05:33→18:35)
[2022-06-28] MEDS: PIPERACILLIN/TAZOBACTAM 4.5 GM in SODIUM CHLORIDE 0.9% 100 ML IV SCH (05:33)
[2022-06-28 05:44] LABS: BASOPHILS % 0.2 % (0.0-1.0); EOSINOPHILS # (AUTO) 0.3 (0.0-0.4); EOSINOPHILS % 1.3 % (0.0-6.0); HEMOGLOBIN 8.4 g/dL (14.0-18.0); LYMPHOCYTES # (AUTO) 1.2 (1.0-3.2); LYMPHOCYTES % 6.3 % (18.0-39.1); MEAN CORPUSCULAR HEMOGLOBIN 22.2 pg (28-32); MEAN CORPUSCULAR VOLUME 79.4 fL (81-99); MONOCYTES # (AUTO) 1.2 (0.2-0.8); MONOCYTES % 6.1 % (4.4-11.3); NEUTROPHILS # (AUTO) 16.6 (2.1-6.9); NEUTROPHILS % 84.8 % (38.7-80.0); PLATELET COUNT 259 x10e3/uL (140-360); RED BLOOD COUNT 3.78 x10e6/uL (4.3-5.7); RED CELL DISTRIBUTION WIDTH 24.2 % (11.7-14.4)
[2022-06-28 06:14] LABS: ANION GAP 19.1 mmol/L (8-16); CREATININE, SERUM 1.01 mg/dL (0.72-1.25); POTASSIUM 4.1 mmol/L (3.5-5.1)
[2022-06-28] MEDS: PANTOPRAZOLE SOD 40 MG TABEC PO SCH (07:30)
[2022-06-28 08:28] LABS: ANISOCYTOSIS MODERATE; HYPOCHROMASIA MODERATE; PLATELET ESTIMATE ADEQUATE; PLATELET MORPHOLOGY COMMENT NORMAL; RBC MORPHOLOGY COMMENT ABNORMAL
[2022-06-28 08:29] LABS: MICROCYTOSIS MODERATE
[2022-06-28] MEDS: SODIUM FERRIC GLUCONATE COMPLX 125 MG in SODIUM CHLORIDE 0.9% 100 ML IV SCH (09:00)
[2022-06-28] MEDS: FOLIC ACID/CYANOCOB/PYRIDOXINE TAB PO SCH (09:00)
[2022-06-28] MEDS: DOCUSATE SODIUM 100 MG CAP PO SCH ×2 (09:00→17:00)
[2022-06-28] MEDS ORDERED: SODIUM CHLORIDE 0.9% 250ML 250 ML ONE (14:17)
[2022-06-28] MEDS ORDERED: FENTANYL 25 MCG/HR PATCH TOP ONE (15:15)
[2022-06-28] MEDS: RIVAROXABAN 10 MG TABLET PO SCH (17:00)
[2022-06-28] MEDS: SERTRALINE HCL 50 MG TAB PO SCH (17:50)
[2022-06-29] VITALS (7 sets, daily range): BP systolic 130–157; BP diastolic 80–94
[2022-06-29] MEDS: HYDROMORPHONE 1MG/1ML INJ IV PRN ×2 (02:38→09:05)
[2022-06-29 05:50] LABS: BASOPHILS % 0.3 % (0.0-1.0); EOSINOPHILS # (AUTO) 0.2 (0.0-0.4); EOSINOPHILS % 1.5 % (0.0-6.0); HEMATOCRIT 31.5 % (38.2-49.6); HEMOGLOBIN 8.6 g/dL (14.0-18.0); LYMPHOCYTES # (AUTO) 1.3 (1.0-3.2); LYMPHOCYTES % 10.3 % (18.0-39.1); MEAN CORPUSCULAR HEMOGLOBIN 21.9 pg (28-32); MEAN CORPUSCULAR HGB CONC 27.3 g/dL (31-35); MEAN CORPUSCULAR VOLUME 80.4 fL (81-99); MONOCYTES % 8.2 % (4.4-11.3); NEUTROPHILS # (AUTO) 9.6 (2.1-6.9); NEUTROPHILS % 78.5 % (38.7-80.0); PLATELET COUNT 286 x10e3/uL (140-360); RED BLOOD COUNT 3.92 x10e6/uL (4.3-5.7); RED CELL DISTRIBUTION WIDTH 24.6 % (11.7-14.4)
[2022-06-29 06:34] LABS: ALBUMIN 3.2 g/dL (3.5-5.0); ALBUMIN/GLOBULIN RATIO 0.7 (0.8-2.0); ANION GAP 16.5 mmol/L (8-16); CALCIUM 9.9 mg/dL (8.4-10.2); CREATININE, SERUM 0.95 mg/dL (0.72-1.25); MAGNESIUM 2.6 MG/DL (1.3-2.1); PHOSPHORUS 4.2 MG/DL (2.3-4.7); POTASSIUM 4.5 mmol/L (3.5-5.1)
[2022-06-29] MEDS: PANTOPRAZOLE SOD 40 MG TABEC PO SCH (07:30)
[2022-06-29] MEDS: DOCUSATE SODIUM 100 MG CAP PO SCH (09:00)
[2022-06-29] MEDS: FOLIC ACID/CYANOCOB/PYRIDOXINE TAB PO SCH (09:00)
[2022-06-29] MEDS: SERTRALINE HCL 50 MG TAB PO SCH (09:00)
[2022-06-29 09:01] LABS: ANISOCYTOSIS MODERATE; HYPOCHROMASIA SLIGHT; PLATELET ESTIMATE ADEQUATE; PLATELET MORPHOLOGY COMMENT NORMAL; POLYCHROMASIA FEW; RBC MORPHOLOGY COMMENT ABNORMAL
[2022-06-29] MEDS: HYDROCODONE BIT/ACETAMINOPHEN 2.5 MG/108MG PER 5 ML SOLUTION PO PRN (13:30)
[2022-06-29] MEDS: HYDRALAZINE HCL 20 MG/ML VIAL IV PRN (16:00)
[2022-06-29] MEDS: RIVAROXABAN 10 MG TABLET PO SCH (16:53)
[2022-06-29] MEDS ORDERED: DOCUSATE SODIUM LIQD 100 MG/10 ML UDC PO SCH (17:00)
[2022-06-29] MEDS ORDERED: DOCUSATE SODIUM LIQD 100 MG/10 ML UDC PO PRN (17:15)
[2022-06-29] MEDS ORDERED: FENTANYL 50 MCG/HR PATCH TOP SCH (18:00)
[2022-06-29] MEDS: FENTANYL 50 MCG/HR PATCH TOP SCH (20:56)
[2022-06-30] VITALS (8 sets, daily range): BP systolic 133–158; BP diastolic 80–95
[2022-06-30 06:18] LABS: BASOPHILS % 0.2 % (0.0-1.0); EOSINOPHILS # (AUTO) 0.2 (0.0-0.4); EOSINOPHILS % 1.5 % (0.0-6.0); HEMATOCRIT 33.7 % (38.2-49.6); HEMOGLOBIN 8.8 g/dL (14.0-18.0); LYMPHOCYTES # (AUTO) 1.3 (1.0-3.2); LYMPHOCYTES % 11.3 % (18.0-39.1); MEAN CORPUSCULAR HEMOGLOBIN 22.3 pg (28-32); MEAN CORPUSCULAR HGB CONC 26.1 g/dL (31-35); MEAN CORPUSCULAR VOLUME 85.5 fL (81-99); MONOCYTES % 9.2 % (4.4-11.3); NEUTROPHILS # (AUTO) 8.7 (2.1-6.9); NEUTROPHILS % 77.2 % (38.7-80.0); PLATELET COUNT 306 x10e3/uL (140-360); RED BLOOD COUNT 3.94 x10e6/uL (4.3-5.7); RED CELL DISTRIBUTION WIDTH 25.2 % (11.7-14.4)
[2022-06-30 06:43] LABS: ANION GAP 18.2 mmol/L (8-16); CREATININE, SERUM 0.88 mg/dL (0.72-1.25); POTASSIUM 4.2 mmol/L (3.5-5.1)
[2022-06-30] MEDS: PANTOPRAZOLE SOD 40 MG TABEC PO SCH (07:30)
[2022-06-30] MEDS: SERTRALINE HCL 50 MG TAB PO SCH (09:16)
[2022-06-30] MEDS: FOLIC ACID/CYANOCOB/PYRIDOXINE TAB PO SCH (09:16)
[2022-06-30 09:37] LABS: ANISOCYTOSIS MODERATE; HYPOCHROMASIA MODERATE; PLATELET ESTIMATE ADEQUATE; PLATELET MORPHOLOGY COMMENT FEW LARGE; POLYCHROMASIA FEW; RBC MORPHOLOGY COMMENT ABNORMAL
[2022-06-30] MEDS: HYDROCODONE BIT/ACETAMINOPHEN 2.5 MG/108MG PER 5 ML SOLUTION PO PRN ×3 (10:27→22:22)
[2022-06-30] MEDS: MEROPENEM 1 GM in SODIUM CHLORIDE 0.9% 100 ML IV SCH ×2 (13:59→22:12)
[2022-06-30] MEDS: RIVAROXABAN 20 MG TABLET PO SCH (17:00)
[2022-06-30] MEDS ORDERED: MELATONIN 3 MG TAB PO PRN (19:00)
[2022-07-01] VITALS (8 sets, daily range): BP systolic 121–166; BP diastolic 79–94
[2022-07-01] MEDS: MEROPENEM 1 GM in SODIUM CHLORIDE 0.9% 100 ML IV SCH ×3 (06:05→23:21)
[2022-07-01] MEDS: HYDROCODONE BIT/ACETAMINOPHEN 2.5 MG/108MG PER 5 ML SOLUTION PO PRN ×3 (06:23→18:53)
[2022-07-01 07:25] LABS: BASOPHILS # (AUTO) 0.1 (0.0-0.1); BASOPHILS % 0.4 % (0.0-1.0); EOSINOPHILS # (AUTO) 0.3 (0.0-0.4); EOSINOPHILS % 2.4 % (0.0-6.0); HEMATOCRIT 36.3 % (38.2-49.6); HEMOGLOBIN 9.5 g/dL (14.0-18.0); LYMPHOCYTES # (AUTO) 1.3 (1.0-3.2); LYMPHOCYTES % 9.2 % (18.0-39.1); MEAN CORPUSCULAR HEMOGLOBIN 22.6 pg (28-32); MEAN CORPUSCULAR HGB CONC 26.2 g/dL (31-35); MEAN CORPUSCULAR VOLUME 86.4 fL (81-99); MONOCYTES # (AUTO) 1.3 (0.2-0.8); MONOCYTES % 9.1 % (4.4-11.3); PLATELET COUNT 257 x10e3/uL (140-360); RED CELL DISTRIBUTION WIDTH 25.6 % (11.7-14.4)
[2022-07-01] MEDS: FOLIC ACID/CYANOCOB/PYRIDOXINE TAB PO SCH (08:32)
[2022-07-01] MEDS: SERTRALINE HCL 50 MG TAB PO SCH (08:33)
[2022-07-01] MEDS: PANTOPRAZOLE SOD 40 MG TABEC PO SCH (08:33)
[2022-07-01] MEDS ORDERED: FENTANYL 25 MCG/HR PATCH TOP SCH (16:00)
[2022-07-01] MEDS: RIVAROXABAN 20 MG TABLET PO SCH (16:56)
[2022-07-02] VITALS (7 sets, daily range): BP systolic 131–157; BP diastolic 72–85
[2022-07-02] MEDS: HYDROCODONE BIT/ACETAMINOPHEN 2.5 MG/108MG PER 5 ML SOLUTION PO PRN ×4 (02:53→21:39)
[2022-07-02] MEDS: MEROPENEM 1 GM in SODIUM CHLORIDE 0.9% 100 ML IV SCH ×3 (06:51→21:42)
[2022-07-02] MEDS: PANTOPRAZOLE SOD 40 MG TABEC PO SCH (08:01)
[2022-07-02] MEDS: SERTRALINE HCL 50 MG TAB PO SCH (08:01)
[2022-07-02] MEDS: FOLIC ACID/CYANOCOB/PYRIDOXINE TAB PO SCH (08:01)
[2022-07-02] MEDS ORDERED: XARELTO10 MG PO (08:50)
[2022-07-02] MEDS ORDERED: SODIUM CHLORIDE 0.9% 250ML 250 ML ONE (12:12)
[2022-07-02] MEDS ORDERED: SODIUM FERRIC GLUCONATE COMPLX 125 MG in SODIUM CHLORIDE 0.9% 100 ML IV ONE (15:00)
[2022-07-02] MEDS: RIVAROXABAN 20 MG TABLET PO SCH (16:32)
[2022-07-02] MEDS: FENTANYL 50 MCG/HR PATCH TOP SCH (21:42)
[2022-07-03 00:08] VITALS: BP 132/74
[2022-07-03 04:23] VITALS: BP 128/72
[2022-07-03 06:19] LABS: BASOPHILS # (AUTO) 0.1 (0.0-0.1); BASOPHILS % 0.4 % (0.0-1.0); EOSINOPHILS # (AUTO) 0.3 (0.0-0.4); EOSINOPHILS % 2.2 % (0.0-6.0); HEMATOCRIT 30.5 % (38.2-49.6); HEMOGLOBIN 8.5 g/dL (14.0-18.0); LYMPHOCYTES # (AUTO) 1.3 (1.0-3.2); LYMPHOCYTES % 8.7 % (18.0-39.1); MEAN CORPUSCULAR HEMOGLOBIN 22.5 pg (28-32); MEAN CORPUSCULAR HGB CONC 27.9 g/dL (31-35); MEAN CORPUSCULAR VOLUME 80.9 fL (81-99); MONOCYTES # (AUTO) 1.4 (0.2-0.8); MONOCYTES % 9.2 % (4.4-11.3); NEUTROPHILS # (AUTO) 11.6 (2.1-6.9); NEUTROPHILS % 78.2 % (38.7-80.0); PLATELET COUNT 279 x10e3/uL (140-360); RED BLOOD COUNT 3.77 x10e6/uL (4.3-5.7); RED CELL DISTRIBUTION WIDTH 25.3 % (11.7-14.4)
[2022-07-03] MEDS: MEROPENEM 1 GM in SODIUM CHLORIDE 0.9% 100 ML IV SCH ×3 (06:45→21:32)
[2022-07-03] MEDS: HYDROCODONE BIT/ACETAMINOPHEN 2.5 MG/108MG PER 5 ML SOLUTION PO PRN ×2 (06:47→16:13)
[2022-07-03 08:25] VITALS: BP 142/73
[2022-07-03 08:35] VITALS: BP 142/73
[2022-07-03] MEDS ORDERED: EPOETIN ALFA-EPBX 10,000 UNIT/ML VIAL SC ONE (09:45)
[2022-07-03] MEDS: PANTOPRAZOLE SOD 40 MG TABEC PO SCH (10:16)
[2022-07-03] MEDS: SERTRALINE HCL 50 MG TAB PO SCH (10:16)
[2022-07-03] MEDS: FOLIC ACID/CYANOCOB/PYRIDOXINE TAB PO SCH (10:16)
[2022-07-03 11:35] VITALS: BP 140/74
[2022-07-03] MEDS: RIVAROXABAN 20 MG TABLET PO SCH (17:07)
[2022-07-03] MEDS ORDERED: SIMETHICONE 80 MG CHEW PO PRN (17:15)
[2022-07-03 20:00] VITALS: BP 130/74
[2022-07-03] MEDS: MELATONIN 5 MG TABLET PO SCH (20:37)
[2022-07-04] VITALS (8 sets, daily range): BP systolic 121–178; BP diastolic 64–85
[2022-07-04] MEDS: HYDRALAZINE HCL 20 MG/ML VIAL IV PRN ×2 (00:18→21:43)
[2022-07-04] MEDS: MEROPENEM 1 GM in SODIUM CHLORIDE 0.9% 100 ML IV SCH ×3 (05:23→21:42)
[2022-07-04] MEDS: FOLIC ACID/CYANOCOB/PYRIDOXINE TAB PO SCH (09:18)
[2022-07-04] MEDS: SERTRALINE HCL 50 MG TAB PO SCH (09:18)
[2022-07-04] MEDS: PANTOPRAZOLE SOD 40 MG TABEC PO SCH (09:18)
[2022-07-04] MEDS ORDERED: HYDROCODONE BIT/ACETAMINOPHEN 2.5 MG/108MG PER 5 ML SOLUTION PO PRN (15:30)
[2022-07-04] MEDS: RIVAROXABAN 20 MG TABLET PO SCH (16:58)
[2022-07-04] MEDS: HYDROCODONE BIT/ACETAMINOPHEN 2.5 MG/108MG PER 5 ML SOLUTION PO PRN (16:58)
[2022-07-04] MEDS: MELATONIN 5 MG TABLET PO SCH (21:00)
[2022-07-05] VITALS: BP 147/78
[2022-07-05] MEDS: HYDROCODONE BIT/ACETAMINOPHEN 2.5 MG/108MG PER 5 ML SOLUTION PO PRN
[2022-07-05 05:13] VITALS: BP_SYST 150; BP_SYST 151; BP_DIAS 81
[2022-07-05] MEDS: MEROPENEM 1 GM in SODIUM CHLORIDE 0.9% 100 ML IV SCH ×2 (05:35→14:25)
[2022-07-05 05:59] LABS: BASOPHILS # (AUTO) 0.1 (0.0-0.1); BASOPHILS % 0.4 % (0.0-1.0); EOSINOPHILS # (AUTO) 0.5 (0.0-0.4); EOSINOPHILS % 3.7 % (0.0-6.0); HEMOGLOBIN 8.9 g/dL (14.0-18.0); LYMPHOCYTES # (AUTO) 1.4 (1.0-3.2); LYMPHOCYTES % 10.2 % (18.0-39.1); MEAN CORPUSCULAR HEMOGLOBIN 22.6 pg (28-32); MEAN CORPUSCULAR HGB CONC 27.8 g/dL (31-35); MEAN CORPUSCULAR VOLUME 81.2 fL (81-99); MONOCYTES # (AUTO) 1.1 (0.2-0.8); MONOCYTES % 8.4 % (4.4-11.3); NEUTROPHILS # (AUTO) 10.2 (2.1-6.9); NEUTROPHILS % 75.7 % (38.7-80.0); PLATELET COUNT 363 x10e3/uL (140-360); RED BLOOD COUNT 3.94 x10e6/uL (4.3-5.7); RED CELL DISTRIBUTION WIDTH 25.6 % (11.7-14.4)
[2022-07-05 06:31] LABS: ALBUMIN/GLOBULIN RATIO 0.4 (0.8-2.0); ANION GAP 17.3 mmol/L (8-16); CALCIUM 8.7 mg/dL (8.4-10.2); CREATININE, SERUM 0.69 mg/dL (0.72-1.25); MAGNESIUM 1.9 MG/DL (1.3-2.1); PHOSPHORUS 3.1 MG/DL (2.3-4.7); POTASSIUM 4.3 mmol/L (3.5-5.1)
[2022-07-05 08:26] VITALS: BP 135/75
[2022-07-05 08:32] VITALS: BP_SYST 123; BP_SYST 135; BP_DIAS 65; BP_DIAS 75
[2022-07-05] MEDS: FOLIC ACID/CYANOCOB/PYRIDOXINE TAB PO SCH (09:04)
[2022-07-05] MEDS: SERTRALINE HCL 50 MG TAB PO SCH (09:04)
[2022-07-05] MEDS: PANTOPRAZOLE SOD 40 MG TABEC PO SCH (09:04)
[2022-07-05 09:25] LABS: ANISOCYTOSIS MODERATE; HYPOCHROMASIA MODERATE; OVALOCYTES FEW; PLATELET ESTIMATE ADEQUATE; PLATELET MORPHOLOGY COMMENT NORMAL; RBC MORPHOLOGY COMMENT ABNORMAL
[2022-07-05] MEDS ORDERED: PROTONIX40 MG/ML PO (09:55)
[2022-07-05] MEDS ORDERED: Hydrocodone Bit/Acetaminophen PO (09:55)
[2022-07-05] MEDS ORDERED: MIRALAX17 GM PO (09:55)
[2022-07-05] MEDS ORDERED: XARELTO10 MG PO (09:55)
[2022-07-05] MEDS ORDERED: MEROPENEM1 GM IV (09:55)
[2022-07-05] MEDS ORDERED: SIMETHICONE80 MG PO (09:55)
[2022-07-05] MEDS ORDERED: NEPHRO-VITE TABL1 EA PO (09:55)
[2022-07-05] MEDS ORDERED: FENTANYL1 EAC1 TOP (09:55)
[2022-07-05] MEDS ORDERED: ACETAMINOPHEN325 M1 PO (09:55)
[2022-07-05] MEDS ORDERED: ZOLOFT50 MG PO (09:55)
[2022-07-05] MEDS ORDERED: MELATONIN5 M2 PO (09:55)
[2022-07-05] MEDS ORDERED: COLACE100 MG/10 PO (09:55)
[2022-07-05] MEDS ORDERED: COLACE100 M1 PO (10:01)
[2022-07-05 11:54] VITALS: BP 142/85
[2022-07-05 16:01] VITALS: BP 131/81
[2022-07-05] MEDS: RIVAROXABAN 20 MG TABLET PO SCH (16:51)
[2022-07-05] MEDS: FENTANYL 50 MCG/HR PATCH TOP SCH (21:00)
[2022-07-05] MEDS: MELATONIN 5 MG TABLET PO SCH (21:00)
[2022-07-06] MEDS: MEROPENEM 1 GM in SODIUM CHLORIDE 0.9% 100 ML IV SCH (01:00)
[2022-07-06 01:29] VITALS: BP 143/84
[2022-07-06 01:30] VITALS: BP 143/84
[2022-07-06 01:31] VITALS: BP 143/84
== END 2022-07-06 02:29 | disposition home health service (06) | DRG 374 ==
LOC: ICU 11:27 → MED/SURG2 06-19 15:36 → ICU 06-22 17:25 → MED/SURG3 06-26 18:20
PROVIDERS: ADMIT Internal Medicine; ATTEND Internal Medicine
PROC: 30233N1 Transfusion of Nonautologous Red Blood Cells into Peripheral Vein, Percutaneous Approach (ICD-10-PCS; 2022-06-13)
PROC: 02HV33Z Insertion of Infusion Device into Superior Vena Cava, Percutaneous Approach (ICD-10-PCS; 2022-06-16)
PROC: 0DB78ZX Excision of Stomach, Pylorus, Via Natural or Artificial Opening Endoscopic, Diagnostic (ICD-10-PCS; 2022-06-17)
PROC: 0DB68ZX Excision of Stomach, Via Natural or Artificial Opening Endoscopic, Diagnostic (ICD-10-PCS; 2022-06-17)
PROC: 0DB98ZX Excision of Duodenum, Via Natural or Artificial Opening Endoscopic, Diagnostic (ICD-10-PCS; principal; 2022-06-17 14:12)
PROC: 06H03DZ Insertion of Intraluminal Device into Inferior Vena Cava, Percutaneous Approach (ICD-10-PCS; 2022-06-18)
PROC: 0DBK8ZX Excision of Ascending Colon, Via Natural or Artificial Opening Endoscopic, Diagnostic (ICD-10-PCS; 2022-06-21)
PROC: 0DBH8ZX Excision of Cecum, Via Natural or Artificial Opening Endoscopic, Diagnostic (ICD-10-PCS; 2022-06-21)
PROC: 079P30Z Drainage of Spleen with Drainage Device, Percutaneous Approach (ICD-10-PCS; 2022-06-23)
PROC: 0FB13ZX Excision of Right Lobe Liver, Percutaneous Approach, Diagnostic (ICD-10-PCS; 2022-06-23)
DX: C18.2 Malignant neoplasm of ascending colon (principal); A41.9 Sepsis, unspecified organism; J18.9 Pneumonia, unspecified organism; R65.20 Severe sepsis without septic shock; Z68.44 Body mass index [BMI] 60.0-69.9, adult; C78.7 Secondary malignant neoplasm of liver and intrahepatic bile duct; C78.89 Secondary malignant neoplasm of other digestive organs; J90 Pleural effusion, not elsewhere classified; I82.412 Acute embolism and thrombosis of left femoral vein; D62 Acute posthemorrhagic anemia; D73.3 Abscess of spleen; F43.29 Adjustment disorder with other symptoms; Z99.81 Dependence on supplemental oxygen; E66.01 Morbid (severe) obesity due to excess calories; G47.33 Obstructive sleep apnea (adult) (pediatric); F43.89 Other reactions to severe stress; M79.651 Pain in right thigh; K20.90 Esophagitis, unspecified without bleeding; D50.0 Iron deficiency anemia secondary to blood loss (chronic); K80.20 Calculus of gallbladder without cholecystitis without obstruction; K29.70 Gastritis, unspecified, without bleeding; K31.7 Polyp of stomach and duodenum; K31.89 Other diseases of stomach and duodenum; K63.89 Other specified diseases of intestine; K64.8 Other hemorrhoids; Z86.718 Personal history of other venous thrombosis and embolism; Z86.711 Personal history of pulmonary embolism; Z87.442 Personal history of urinary calculi; Z79.01 Long term (current) use of anticoagulants; Z83.3 Family history of diabetes mellitus; D52.9 Folate deficiency anemia, unspecified; F32.A Depression, unspecified; F41.9 Anxiety disorder, unspecified
CPT/HCPCS: 36415; 36569; 37191; 43239; 45378; 45380; 47000; 49405; 49424; 71045; 74019; 74150; 74177; 74470; 76700; 77012; 80048; 80053; 80061; 81241; 81400; 82105; 82270; 82378; 82607; 82728; 82746; 82948; 83010; 83036; 83540; 83605; 83735; 84100; 84443; 84466; 85007; 85025; 85027; 85045; 85303; 85306; 85597; 85610; 85613; 85730; 86301; 86850; 86880; 86900; 86920; 87040; 87070; 87205; 88304; 88305; 88307; 88312; 88342; 89051; 93005; 93306; 93970; 94660; 94799; 99152; 99251; C1729; C1769; C1880; J0360; J0456; J0692; J1170; J1335; J1756; J2001; J2185; J2250; J2405; J2543; J2765; J2916; J3010; J7030; J7050; P9016; Q9967